=== PATIENT | female | born 1960 | race Caucasian/White ===

== ENCOUNTER 2024-09-22 09:22 | Outpatient (CLI) | payer OTHER | END 2024-09-22 09:23 | disposition home or self-care (01) | LOC: SCSRAD 09:22 | PROVIDERS: ATTEND Family Medicine | DX: M54.2 Cervicalgia (principal); M47.812 Spondylosis without myelopathy or radiculopathy, cervical region; R23.2 Flushing | CPT/HCPCS: 36415; 72050; 82670; 84144; 84403 ==